=== PATIENT | male | born 1985 | race Caucasian/White ===

== ENCOUNTER 2021-04-18 19:38 | Emergency (ER) | payer BC ==
[2021-04-18 20:40] VITALS: O2SAT 96
--- NOTE | 2021-04-18 20:48 | ERPHSYRPT ---
- History of Present Illness Time Seen by Provider: 04/18/21 19:40 Source: patient Exam Limitations: no limitations Patient Subjective Stated Complaint: pt states "I had a fever of 102.4 at home and was around a covid person." Triage Nursing Assessment: pt ambulated into the er; pt is axo x4; c/o fever; pt states highest fever at home was 102.4; pt states that fever began this morning; pt states he was in close contact with a covid positive person; pt states he had headache 3-4 days ago; pt states he had tylenol 3-4 hours ago; pt states that he has had chills all morning; temp of 99.7; vitals wnl Physician History: 35 years old healthy male presented to the ER with chief complaint of fever with a T-max of 102 prior to arrival since morning. Taking Tylenol and currently afebrile on presentation. Minimal nonproductive cough, mild sinus congestion, myalgia and questionable positive sick contact. No shortness of breath. No nausea or vomiting. Timing/Duration: today, intermittent Cough Quality/Degree: mild, dry cough Possible Cause: no prior episodes Modifying Factors: Worsens With: coughing Associated Symptoms: fever, cough, muscle aches, nasal congestion Allergies/Adverse Reactions: No Known Drug Allergies Allergy (Unverified 04/18/21 20:25) Home Medications: No Reportable Medications [No Reported Medications] 04/18/21 [History] Hx Tetanus, Diphtheria Vaccination/Date Given: Yes Hx Influenza Vaccination/Date Given: No Hx Pneumococcal Vaccination/Date Given: No Travel Risk - International Travel Have you traveled outside of the country in past 3 weeks: No - Coronavirus Screening Are you exhibiting any of the following symptoms?: Yes Symptoms: Fever, Cough: New Onset Close contact with a COVID-19 positive Pt in past 14-21 Days: Yes - Vaccine Status Have you recieved a Covid-19 vaccination: No - Review of Systems Constitutional: Fever Eyes: No Symptoms Ears, Nose, & Throat: No Symptoms Respiratory: Cough Cardiac: No Symptoms Abdominal/Gastrointestinal: No Symptoms Genitourinary Symptoms: No Symptoms Musculoskeletal: Myalgias Skin: No Symptoms Neurological: Headache Psychological: No Symptoms Endocrine: No Symptoms Hematologic/Lymphatic: No Symptoms Immunological/Allergic: No Symptoms - Past Medical History Pertinent Past Medical History: No - Past Surgical History Past Surgical History: Yes Gastrointestinal: Appendectomy - Social History Smoking Status: Current every day smoker Exposure to second hand smoke: Yes Drug Use: none Patient Lives Alone: No - Nursing Vital Signs Nursing Vital Signs: Initial Vital Signs Temperature 99.7 F 04/18/21 20:26 Pulse Rate 88 04/18/21 20:26 Respiratory Rate 20 04/18/21 20:26 Blood Pressure 116/56 04/18/21 20:26 O2 Sat by Pulse Oximetry 96 04/18/21 20:26 Pain Scale Pain Intensity 0 - Physical Exam General Appearance: no apparent distress, alert Eye Exam: PERRL/EOMI, eyes nml inspection Ears, Nose, Throat Exam: normal ENT inspection, TMs normal, pharynx normal Neck Exam: normal inspection, non-tender, supple, full range of motion Respiratory Exam: normal breath sounds, lungs clear Cardiovascular Exam: regular rate/rhythm, normal heart sounds Gastrointestinal/Abdomen Exam: soft, normal bowel sounds, No tenderness Back Exam: normal inspection Extremity Exam: normal inspection, normal range of motion Neurologic Exam: alert, oriented x 3, cooperative Skin Exam: normal color, warm SpO2 Interpretation: normal SpO2: 96 O2 Delivery: Room Air Ordered Tests: Active Orders 24 hr Category Date Time Status CHEST 1 VIEW (PORTABLE) Stat Exams 04/18/21 20:42 Ordered - Progress Progress: unchanged Air Movement: good Progress Note: 04/18/21 chest x-ray negative for any acute process. COVID-19 is obtained. Recommended contact/droplet precautions. Tylenol as needed and outpatient follow-up. Discussed signs symptoms of worsening needing return to ER which he seems understanding. Blood Culture(s) Obtained: No Antibiotics given: No Counseled pt/family regarding: lab results, diagnosis, need for follow-up, rad results - Departure Departure Disposition: Home Clinical Impression: Viral syndrome Condition: Stable Critical Care Time: No Referrals: DOCTOR,NO FAMILY [Primary Care Provider] - TOR CUMMINGS [ACTIVE STAFF] - Follow Up with PCP/3 days Instructions: Fever, Adult (DC), Viral Syndrome (DC) Additional Instructions: Take Tylenol as needed. Follow-up with your primary care reevaluation. Return to ER for worsening cough, persistent fever/shortness of breath etc.
[2021-04-18 21:39] VITALS: BP 120/65; PULSE 77
--- NOTE | 2021-04-19 09:01 | XRAY ---
Indication: Fever and cough. Suspect Covid 19. Comparison: None Portable chest demonstrates normal heart, lungs, and bony thorax.
== END 2021-04-18 21:39 | disposition home or self-care (01) ==
LOC: ED 19:38
DX: B34.9 Viral infection, unspecified (principal)
CPT/HCPCS: 71045; 99283; U0003

== ENCOUNTER 2023-03-11 02:48 | Emergency (ER) | payer BC, OTHER ==
[2023-03-11 02:55] VITALS: TEMP 97.3
[2023-03-11] MEDS ORDERED: Zofran 4 MG/2 ML VIAL IV ONE (03:09)
[2023-03-11] MEDS ORDERED: SUBLIMAZE 100 MCG/2 ML IV ONE (03:09)
[2023-03-11] MEDS ORDERED: Sodium Chloride 0.9% 1000 ML 1,000 ML IV STA (03:09)
[2023-03-11] MEDS ORDERED: Sodium Chloride 0.9% 1000 ML 1,000 ML ONE (03:13)
[2023-03-11] MEDS ORDERED: Zofran 4 MG/2 ML VIAL ONE (03:13)
[2023-03-11] MEDS ORDERED: SUBLIMAZE 100 MCG/2 ML ONE (03:13)
--- NOTE | 2023-03-11 03:14 | ERPHSYRPT ---
- History of Present Illness Time Seen by Provider: 03/11/23 03:11 Source: patient Exam Limitations: no limitations Patient Subjective Stated Complaint: pt states "my lower back has been hurting since saturday." Triage Nursing Assessment: pt ambulatory to bed by self, mother present, pt alert and oriented x3, skin pwd, pt c/o bilateral lower back pain since saturday, pt describes it as a constant 10/10 pain, pt denies any fever at home or any urinary symptoms, pt denies any radiation of pain. Physician History: pt states "my lower back has been hurting since saturday." c/o bilateral lower back pain since Saturday, pt describes it as a constant 10/10 pain, pt denies any fever at home or any urinary symptoms, pt denies any radiation of pain. Timing/Duration: day(s) (two days) Method of Injury: unknown Quality: sharp, aching Back Pain Location: lumbar spine, paraspinous muscles Severity of Pain-Max: moderate Severity of Pain-Current: moderate Modifying Factors: Improves With: nothing Associated Symptoms: denies symptoms Previous symptoms: different symptoms Body Map: 1 - pain Allergies/Adverse Reactions: No Known Drug Allergies Allergy (Verified 03/11/23 02:52) Hx Tetanus, Diphtheria Vaccination/Date Given: No Hx Influenza Vaccination/Date Given: No Hx Pneumococcal Vaccination/Date Given: No Immunizations Up to Date: No Travel Risk - International Travel Have you traveled outside of the country in past 3 weeks: No - Coronavirus Screening Are you exhibiting any of the following symptoms?: No Close contact with a COVID-19 positive Pt in past 14-21 Days: No - Vaccine Status Have you recieved a Covid-19 vaccination: No - Review of Systems Constitutional: No Fever, No Chills Eyes: No Symptoms Ears, Nose, & Throat: No Symptoms Respiratory: No Cough, No Dyspnea Cardiac: No Chest Pain, No Edema, No Syncope Abdominal/Gastrointestinal: No Abdominal Pain, No Nausea, No Vomiting, No Diarrhea Genitourinary Symptoms: No Dysuria Musculoskeletal: Back Pain, No Neck Pain Skin: No Rash Neurological: No Dizziness, No Focal Weakness, No Sensory Changes Psychological: No Symptoms Endocrine: No Symptoms All Other Systems: Reviewed and Negative - Past Medical History Pertinent Past Medical History: No Neurological History: No Pertinent History ENT History: No Pertinent History Cardiac History: No Pertinent History Respiratory History: No Pertinent History Endocrine Medical History: No Pertinent History Musculoskeletal History: No Pertinent History GI Medical History: No Pertinent History History: No Pertinent History Psycho-Social History: No Pertinent History Male Reproductive Disorders: No Pertinent History - Past Surgical History Past Surgical History: Yes Neuro Surgical History: No Pertinent History Cardiac: No Pertinent History Respiratory: No Pertinent History Gastrointestinal: Appendectomy Genitourinary: No Pertinent History Musculoskeletal: No Pertinent History Male Surgical History: No Pertinent History - Social History Smoking Status: Current every day smoker Exposure to second hand smoke: No Drug Use: none Patient Lives Alone: Yes - Nursing Vital Signs Nursing Vital Signs: Initial Vital Signs Temperature 97.3 F 03/11/23 02:53 Pulse Rate 81 03/11/23 02:53 Respiratory Rate 18 03/11/23 02:53 Blood Pressure 130/83 03/11/23 02:53 O2 Sat by Pulse Oximetry 97 03/11/23 02:53 Pain Scale Pain Intensity [] 10 Pain Intensity 3 - Physical Exam General Appearance: no apparent distress, alert Eye Exam: PERRL/EOMI, eyes nml inspection Neck Exam: normal inspection, non-tender, supple, full range of motion, No me ningismus, No midline tenderness Respiratory Exam: normal breath sounds, lungs clear, No respiratory distress Cardiovascular Exam: regular rate/rhythm, normal heart sounds Gastrointestinal Exam: soft, No tenderness, No mass, No guarding, No rebound Rectal Exam: not done Extremity Exam: normal inspection, normal range of motion, No calf tenderness, No pedal edema Neurologic Exam: alert, oriented x 3, 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, 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, normal mood/affect, nml station & gait, sensation nml, No motor deficits Skin Exam: normal color, warm, dry, No rash SpO2: 97 - Course Nursing assessment & vital signs reviewed: Yes - CT Exams Abdomen/Pelvis CT Interpretation: Tele-radiologist Report Ordered Tests: Active Orders 24 hr Category Date Time Status ABDOMEN AND PELVIS W/0 CONTRAS [CT] Stat Exams 03/11/23 03:10 Completed AMYLASE Stat Lab 03/11/23 03:32 Completed CBC W DIFF Stat Lab 03/11/23 03:32 Completed CMP Stat Lab 03/11/23 03:32 Completed CULTURE,URINE Stat Lab 03/11/23 03:18 Received UA W/RFX UR CULTURE Stat Lab 03/11/23 03:18 Completed Urine Triage Profile Stat Lab 03/11/23 03:18 Completed Medication Summary Discontinued Medications Generic Name Dose Route Start Last Admin Trade Name Narendra PRN Reason Stop Dose Admin Fentanyl Citrate 50 mcg 03/11/23 03:09 03/11/23 03:15 Fentanyl Citrate 100 Mcg/2 Ml* Vial IV 03/11/23 03:10 50 mcg STAT ONE Administration Fentanyl Citrate Confirm 03/11/23 03:13 Fentanyl Citrate 100 Mcg/2 Ml* Vial Administered 03/11/23 03:14 Dose 100 mcg .ROUTE .STK-MED ONE Sodium Chloride 1,000 mls @ 999 mls/hr 03/11/23 03:09 03/11/23 03:15 Sodium Chloride 0.9% 1000 Ml IV 03/11/23 04:09 999 mls/hr .Q1H1M STA Administration Sodium Chloride Confirm 03/11/23 03:13 Sodium Chloride 0.9% 1000 Ml Administered 03/11/23 03:14 Dose 1,000 mls @ ud .ROUTE .STK-MED ONE Ceftriaxone Sodium/Dextrose 1 g in 50 mls @ 100 mls/hr 03/11/23 03:43 03/11/23 04:03 Rocephin 1 Gm-D5w 50 Ml Bag IV 03/11/23 04:12 100 mls/hr STAT STA 100 mls/hr Administration Ceftriaxone Sodium/Dextrose Confirm 03/11/23 03:59 Rocephin 1 Gm-D5w 50 Ml Bag Administered 03/11/23 04:00 Dose 1 g in 50 mls @ ud IV .STK-MED ONE Ondansetron HCl 4 mg 03/11/23 03:09 03/11/23 03:15 Ondansetron Hcl 4 Mg/2 Ml Vial IV 03/11/23 03:10 4 mg STAT ONE Administration Ondansetron HCl Confirm 03/11/23 03:13 Ondansetron Hcl 4 Mg/2 Ml Vial Administered 03/11/23 03:14 Dose 4 mg .ROUTE .STK-MED ONE Lab/Rad Data: Laboratory Result Diagrams 03/11/23 03:32 03/11/23 03:32 Laboratory Results 03/11/23 03/11/23 03/11/23 Range/Units 03:32 03:32 03:18 WBC 17.4 H (4.0-10.5) x10^3/uL RBC 4.97 (4.1-5.6) x10^6/uL Hgb 15.3 (12.5-18.0) g/dL Hct 46.2 (42-50) % MCV 93.0 (78-100) fL MCH 30.8 (26-32) pg MCHC 33.1 (32-36) g/dL RDW 13.2 (11.5-14.0) % Plt Count 277 (150-450) x10^3/uL MPV 10.2 (7.5-11.0) fL Gran % 68.1 H (36.0-66.0) % Immature Gran % (Auto) 0.6 H (0.00-0.4) % Nucleat RBC Rel Count 0.0 (0.00-0.1) % Eos # (Auto) 0.33 (0-0.5) x10^3/uL Immature Gran # (Auto) 0.10 H (0.00-0.03) x10^3u/L Absolute Lymphs (auto) 3.87 (1.0-4.6) x10^3/uL Absolute Monos (auto) 1.18 (0.0-1.3) x10^3/uL Absolute Nucleated RBC 0.00 (0.00-0.01) x10^3u/L Lymphocytes % 22.2 L (24.0-44.0) % Monocytes % 6.8 (0.0-12.0) % Eosinophils % 1.9 (0.00-5.0) % Basophils % 0.4 (0.0-0.4) % Absolute Granulocytes 11.85 H (1.4-6.9) x10^3/uL Basophils # 0.07 (0-0.4) x10^3/uL Sodium 135 L (137-145) mmol/L Potassium 4.3 (3.5-5.1) mmol/L Chloride 99 (98-107) mmol/L Carbon Dioxide 27 (22-30) mmol/L Anion Gap 13.4 (5-15) MEQ/L BUN 17 (9-20) mg/dL Creatinine 0.90 (0.66-1.25) mg/dL Estimated GFR > 60.0 ML/MIN Glucose 102 (74-106) mg/dL Calcium 8.9 (8.4-10.2) mg/dL Total Bilirubin 0.40 (0.2-1.3) mg/dL AST 21 (17-59) U/L ALT 23 (0-50) U/L Alkaline Phosphatase 91 (38-126) U/L Serum Total Protein 7.7 (6.3-8.2) g/dL Albumin 4.3 (3.5-5.0) g/dL Amylase 81 (30-110) U/L Urine Color (Yellow) Urine Appearance (Clear) Urine pH (4.6-8.0) Ur Specific Hiram (1.005-1.030) Urine Protein (Negative) Urine Glucose (UA) (Negative) mg/dL Urine Ketones (Negative) Urine Blood (Negative) Urine Nitrite (Negative) Urine Bilirubin (Negative) Urine Urobilinogen (0.2) mg/dL Ur Leukocyte Esterase (Negative) U Hyaline Cast (Auto) (0-2) /LPF Urine Microscopic RBC (0-5) /HPF Urine Microscopic WBC (0-5) /HPF Ur Epithelial Cells (None Seen) /HPF Urine Bacteria (None Seen) /HPF Urine Culture Reflexed (NO) Urine Opiates Level NEGATIVE (NEGATIVE) Ur Methadone NEGATIVE (NEGATIVE) Urine Barbiturates NEGATIVE (NEGATIVE) Ur Phencyclidine (PCP) NEGATIVE (NEGATIVE) Urine Amphetamine NEGATIVE (NEGATIVE) U Benzodiazepine Level NEGATIVE (NEGATIVE) Urine Cocaine NEGATIVE (NEGATIVE) Urine Marijuana (THC) NEGATIVE (NEGATIVE) 03/11/23 Range/Units 03:18 WBC (4.0-10.5) x10^3/uL RBC (4.1-5.6) x10^6/uL Hgb (12.5-18.0) g/dL Hct (42-50) % MCV (78-100) fL MCH (26-32) pg MCHC (32-36) g/dL RDW (11.5-14.0) % Plt Count (150-450) x10^3/uL MPV (7.5-11.0) fL Gran % (36.0-66.0) % Immature Gran % (Auto) (0.00-0.4) % Nucleat RBC Rel Count (0.00-0.1) % Eos # (Auto) (0-0.5) x10^3/uL Immature Gran # (Auto) (0.00-0.03) x10^3u/L Absolute Lymphs (auto) (1.0-4.6) x10^3/uL Absolute Monos (auto) (0.0-1.3) x10^3/uL Absolute Nucleated RBC (0.00-0.01) x10^3u/L Lymphocytes % (24.0-44.0) % Monocytes % (0.0-12.0) % Eosinophils % (0.00-5.0) % Basophils % (0.0-0.4) % Absolute Granulocytes (1.4-6.9) x10^3/uL Basophils # (0-0.4) x10^3/uL Sodium (137-145) mmol/L Potassium (3.5-5.1) mmol/L Chloride (98-107) mmol/L Carbon Dioxide (22-30) mmol/L Anion Gap (5-15) MEQ/L BUN (9-20) mg/dL Creatinine (0.66-1.25) mg/dL Estimated GFR ML/MIN Glucose (74-106) mg/dL Calcium (8.4-10.2) mg/dL Total Bilirubin (0.2-1.3) mg/dL AST (17-59) U/L ALT (0-50) U/L Alkaline Phosphatase (38-126) U/L Serum Total Protein (6.3-8.2) g/dL Albumin (3.5-5.0) g/dL Amylase (30-110) U/L Urine Color Yellow (Yellow) Urine Appearance Cloudy A (Clear) Urine pH 6.5 (4.6-8.0) Ur Specific Hiram 1.015 (1.005-1.030) Urine Protein 100 A (Negative) Urine Glucose (UA) Negative (Negative) mg/dL Urine Ketones Negative (Negative) Urine Blood Large A (Negative) Urine Nitrite Negative (Negative) Urine Bilirubin Negative (Negative) Urine Urobilinogen 1.0 A (0.2) mg/dL Ur Leukocyte Esterase Large A (Negative) U Hyaline Cast (Auto) NONE SEEN (0-2) /LPF Urine Microscopic RBC >100 A (0-5) /HPF Urine Microscopic WBC >100 A (0-5) /HPF Ur Epithelial Cells None Seen (None Seen) /HPF Urine Bacteria Few A (None Seen) /HPF Urine Culture Reflexed YES (NO) Urine Opiates Level (NEGATIVE) Ur Methadone (NEGATIVE) Urine Barbiturates (NEGATIVE) Ur Phencyclidine (PCP) (NEGATIVE) Urine Amphetamine (NEGATIVE) U Benzodiazepine Level (NEGATIVE) Urine Cocaine (NEGATIVE) Urine Marijuana (THC) (NEGATIVE) CT/ABDOMEN AND PELVIS W/0 CONTRAS CLINICAL HISTORY:Bilateral CVA pain COMPARISON:None TECHNIQUE:Contiguous axial images without contrast were obtained through the abdomen and pelvis. Coronal and sagittal reformat images were also obtained. Images were reviewed in soft tissue and bone window settings.; CTDI: 5.61 mGy, DLP: 297.06 mGy.cm. FINDINGS: (Parenchymal organ evaluation is suboptimal within the limitation of non-contrast study): The visualized portions of the lungs are normal. The visualized portion of the heart is normal in size without pericardial effusion. The abdominal aorta demonstrates no evidence of focal aneurysmal dilatation or dissection. The liver is normal in size and contours. Parenchyma shows normal attenuation. No focal lesions. There is no evidence of hepatic and portal vein thrombosis or disorders. The gallbladder is normal in size. There is no stone or mass. The common bile duct is normal. No intraluminal pathology detected. The spleen and pancreas are normal contour and attenuation characteristics without focal parenchymal lesions. The adrenals are normal in size and no mass lesion is detected. Bilateral kidneys are normal in size, shape and configuration. There is no evidence of renal mass. No stone, hydronephrosis or saurabh-nephric stranding are visualized. The ureters are normal in course and caliber, without any filling defects. The urinary bladder is empty. The prostate gland and the seminal vesicles are unremarkable. The stomach is normal. Esophagogastric junction is unremarkable. The colon and small bowel loops are normal in appearance and without wall thickening or inflammatory change. No sign of appendicitis. No intraperitoneal free air or fluid is visualized. No pathologic lymphadenopathy is seen. There are no osseous and soft tissue abnormalities. IMPRESSION: No intraabdominal acute pathology. - Progress Progress: improved, pain not gone completely Counseled pt/family regarding: lab results, diagnosis, need for follow-up, rad results Medical Desision Making - Diagnostic Testing Diagnostic test were ordered, analyzed, and reviewed by me: Yes Radiological Interpretation: Teleradiologist Report - Risk of complications Low Risk: Low risk of morbidity from additional dx testing or treatment The pt has a mod risk of morbidity or mortality based on: Need for prescription drug management - Departure Departure Disposition: Home Clinical Impression: Pyelonephritis Condition: Stable Critical Care Time: No Referrals: DOCTOR,NO FAMILY [Primary Care Provider] - Follow up/PCP as directed Instructions: Kidney Infection, Urinary tract infections in adults Additional Instructions: Discharge/Care Plan LAURA ORNELAS was seen on 03/11/23 in the Emergency Room. The patient was counseled regarding Diagnosis,Lab results, Imaging studies, need for follow up and when to return to the Emergency Room. Prescriptions given: Discharge Note I have spoken with the patient and/or caregivers. I have explained the patient's condition, diagnosis and treatment plan based on the information available to me at this time. I have answered the patient's and/or caregiver's questions and addressed any concerns. The patient and/or caregivers have as good understanding of the patient's diagnosis, condition and treatment plan as can be expected at this point. The vital signs have been stable. The patient's condition is stable and appropriate for discharge from the emergency department. The patient will pursue further outpatient evaluation with the primary care physician or other designated or consulting physician as outlined in the discharge instructions. The patient and/or caregivers are agreeable to this plan of care and follow-up instructions have been explained in detail. The patient and/or caregivers have received these instruction. The patient/and or caregivers are aware that any significant change in condition or worsening of symptoms should prompt an immediate return to this or the closest emergency department or call 911. LAURA ORNELAS was seen on 03/11/23 n the Emergency Room. At that time you were treated for an emergent condition, during your visit Laboratory, Radiology and/or other procedures may have been ordered. It is very important that you follow-up with your Primary Care Physician NO FAMILY DOCTOR within the next 24-4 8 hours to review your Emergency Room visit and the final results of testing that was ordered. Some test results such as Urine Cultures, Blood Cultures, and other cultures if ordered will not be finalized for 24-48 hours. If you do not have a Primary Care Provider please call the medical records department at [phone] ext [phone] to obtain a copy of your results or you may sign into our patient portal to obtain these results by visiting us @ [email or web address] and completing the following steps: 1. Click on the Patient Portal link 2. Click the Patient Self Enrollment Link to complete the enrollment form and entering your 3. Once the enrollment form is completed you will receive an email with a temporary ID and password at the email address you provided. 4. Next choose a user name and password. Your user name must be at least 4 magdalene cters long and your password must be at least 4 characters long. 5. Choose a security question from the list and provide your answer to the question. If you already have signed into the Health Portal you may access your Health Care Information 11/03 by the following steps: 1. Login to our website @ [email or web address] 2. Enter your original user name and password. FAQS The [facility] Portal is an online tool that contains your Lab Results, Radiology Reports, Visit History, Discharge Instructions and Health Summary Lab and Radiology Results will not be available for 72 hours on the portal. The Portal is a secure site, passwords are encryted and URLs are re-written so they cannot be copied and pasted. You and authorized family members are the only ones who can access your Portal. Also there is a timeout feature that protects your information if you leave the Portal page open. If you have technical difficulty please use the Contact Us link on the page this will allow you to submit any questions you have regarding the Portal or you may contact the Medical Record Department at [phone] ext [phone]. Prescriptions: Ciprofloxacin [Cipro 500 MG] 500 mg PO BIDAC #20 tablet
[2023-03-11 03:35] LABS: Absolute Neutrophil Ct (ANC) 11.85 x10^3/uL (1.4-6.9); BASOPHIL % 0.4 % (0.0-0.4); Basophil (Absolute #) 0.07 x10^3/uL (0-0.4); Eosinophil % 1.9 % (0.00-5.0); Eosinophil (Absolute #) 0.33 x10^3/uL (0-0.5); Hematocrit 46.2 % (42-50); Hemoglobin 15.3 g/dL (12.5-18.0); IMMATURE GRAN % 0.6 % (0.00-0.4); Lymphocyte (Absolute #) 3.87 x10^3/uL (1.0-4.6); Lymphocytes % 22.2 % (24.0-44.0); Mean Corpuscular Hemoglobin 30.8 pg (26-32); Mean Corpuscular Hgb Concent. 33.1 g/dL (32-36); Mean Platelet Volume 10.2 fL (7.5-11.0); Monocyte (Absolute #) 1.18 x10^3/uL (0.0-1.3); Monocytes % 6.8 % (0.0-12.0); Neutrophil % 68.1 % (36.0-66.0); Platelet Count 277 x10^3/uL (150-450); Red Blood Count 4.97 x10^6/uL (4.1-5.6); Red Cell Distribution Width 13.2 % (11.5-14.0); White Blood Count 17.4 x10^3/uL (4.0-10.5)
[2023-03-11] MEDS ORDERED: ROCEPHIN 1 Gm-D5w 50 ml Bag** 1 G/50 ML IVPB IV STA (03:43)
[2023-03-11 03:44] LABS: Appearance Cloudy (Clear); Bacteria Few /HPF (None Seen); Bilirubin Negative (Negative); Blood Large (Negative); Epithelial Cells None Seen /HPF (None Seen); Glucose, Urine Negative (Negative); Hyaline Casts NONE SEEN /LPF (0-2); Ketones Negative (Negative); Leukocyte Esterase Large (Negative); Nitrite Negative (Negative); Ph 6.5 (4.6-8.0); Protein,Urine Dip 100 (Negative); RBC >100 /HPF (0-5); Specific Gravity 1.015 (1.005-1.030); WBC >100 /HPF (0-5)
[2023-03-11 03:45] LABS: ADD URINE CULTURE? YES (NO)
[2023-03-11 03:48] LABS: ALBUMIN 4.3 g/dL (3.5-5.0); ALKALINE PHOSPHATASE 91 U/L (38-126); AMYLASE 81 U/L (30-110); ANION GAP 13.4 MEQ/L (5-15); BLOOD UREA NITROGEN 17 mg/dL (9-20); CHLORIDE 99 mmol/L (98-107); Calcium 8.9 mg/dL (8.4-10.2); Carbon Dioxide 27 mmol/L (22-30); EST GLOMERULAR FILTRATION RATE > 60.0 ML/MIN; Glucose 102 mg/dL (74-106); Potassium 4.3 mmol/L (3.5-5.1); SGOT/AST 21 U/L (17-59); SGPT/ALT 23 U/L (0-50); SODIUM 135 mmol/L (137-145); Total Protein 7.7 g/dL (6.3-8.2)
[2023-03-11 03:52] LABS: Amphetamine,Urine NEGATIVE (NEGATIVE); Barbiturate,Urine NEGATIVE (NEGATIVE); Benzodiazepine,Urine NEGATIVE (NEGATIVE); Cocaine,Urine NEGATIVE (NEGATIVE); Methadone,Urine NEGATIVE (NEGATIVE); Opiate,Urine NEGATIVE (NEGATIVE); PCP,Urine NEGATIVE (NEGATIVE); THC,Urine NEGATIVE (NEGATIVE)
[2023-03-11] MEDS ORDERED: ROCEPHIN 1 Gm-D5w 50 ml Bag** 1 G/50 ML IVPB IV ONE (03:59)
[2023-03-11 04:07] VITALS: BP 120/76
--- NOTE | 2023-03-11 04:09 | XRAY ---
CLINICAL HISTORY:Bilateral CVA pain COMPARISON:None TECHNIQUE:Contiguous axial images without contrast were obtained through the abdomen and pelvis. Coronal and sagittal reformat images were also obtained. Images were reviewed in soft tissue and bone window settings.; CTDI: 5.61 mGy, DLP: 297.06 mGy.cm. FINDINGS: (Parenchymal organ evaluation is suboptimal within the limitation of non-contrast study): The visualized portions of the lungs are normal. The visualized portion of the heart is normal in size without pericardial effusion. The abdominal aorta demonstrates no evidence of focal aneurysmal dilatation or dissection. The liver is normal in size and contours. Parenchyma shows normal attenuation. No focal lesions. There is no evidence of hepatic and portal vein thrombosis or disorders. The gallbladder is normal in size. There is no stone or mass. The common bile duct is normal. No intraluminal pathology detected. The spleen and pancreas are normal contour and attenuation characteristics without focal parenchymal lesions. The adrenals are normal in size and no mass lesion is detected. Bilateral kidneys are normal in size, shape and configuration. There is no evidence of renal mass. No stone, hydronephrosis or saurabh-nephric stranding are visualized. The ureters are normal in course and caliber, without any filling defects. The urinary bladder is empty. The prostate gland and the seminal vesicles are unremarkable. The stomach is normal. Esophagogastric junction is unremarkable. The colon and small bowel loops are normal in appearance and without wall thickening or inflammatory change. No sign of appendicitis. No intraperitoneal free air or fluid is visualized. No pathologic lymphadenopathy is seen. There are no osseous and soft tissue abnormalities. IMPRESSION: No intraabdominal acute pathology. Electronically Signed by: Byron Lassiter MD. 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
[2023-03-11 04:29] VITALS: PULSE 83; RESP 15; O2SAT 96
== END 2023-03-11 04:42 | disposition home or self-care (01) ==
LOC: ED 02:48
DX: N12 Tubulo-interstitial nephritis, not specified as acute or chronic (principal); M54.50 Low back pain, unspecified; Z28.310 Unvaccinated for COVID-19; Z72.0 Tobacco use
CPT/HCPCS: 36415; 74176; 80053; 80307; 81001; 82150; 85025; 87086; 96365; 96374; 96375; 99284; J0696; J2405; J3010